=== PATIENT | male | born 1965 | race Two or more races ===

== ENCOUNTER 2018-10-16 09:13 | Emergency (ER) | payer OTHER ==
[2018-10-16 09:24] VITALS: BP 139/81; PULSE 71; TEMP 98.3; BMI 26.5
--- NOTE | 2018-10-16 09:35 | PDOC ---
History of Present Illness - General Chief Complaint: Pain, Acute Stated Complaint: LT FOOT PINKING INJURY Time Seen by Provider: 10/16/18 09:34 History Source: Patient Exam Limitations: No Limitations Past History - Travel Traveled outside of the country in the last 30 days: No Close contact w/someone who was outside of country & ill: No - Past Medical History Allergies/Adverse Reactions: Allergies Allergy/AdvReac Type Severity Reaction Status Date / Time No Known Allergies Allergy Verified 10/16/18 09:24 Home Medications: Ambulatory Orders Cephalexin Monohydrate [Keflex -] 500 mg PO BID #14 capsule 10/16/18 Sulfamethoxazole/Trimethoprim [Bactrim Ds -] 1 tab PO BID #14 tablet 10/16/18 - Suicide/Smoking/Psychosocial Hx Smoking History: Current every day smoker Have you smoked in the past 12 months: Yes Number of Cigarettes Smoked Daily: 5 Information on smoking cessation initiated: No Hx Alcohol Use: No Drug/Substance Use Hx: No Review of Systems - Review of Systems Able to Perform ROS?: Yes Comments:: 10/16/18 09:34 CONSTITUTIONAL: Absent: fever, chills, diaphoresis, generalized weakness, malaise, loss of appetite MUSCULOSKELETAL: Present: L foot pain Absent: myalgia, joint swelling SKIN: Absent: rash, itching, pallor NEUROLOGIC: Absent: headache, focal weakness or paresthesias, dizziness, unsteady gait, seizure, mental status changes, bladder or bowel incontinence PSYCHIATRIC: Absent: anxiety, depression, suicidal or homicidal ideation, hallucinations. Is the patient limited Persian proficient: No *Physical Exam - Vital Signs Last Vital Signs Temp Pulse Resp BP Pulse Ox 98.3 F 71 18 139/81 98 10/16/18 09:21 10/16/18 09:21 10/16/18 09:21 10/16/18 09:21 10/16/18 09:21 - Physical Exam Comments: 10/16/18 09:35 GENERAL: Well developed, well nourished. Awake and alert. No acute distress. NECK: Supple. Full ROM. No JVD. Carotid pulses 2+ and symmetric, without bruits. No thyromegaly. No lymphadenopathy. MUSCULOSKELETAL Normal range of motion at all joints. No bony deformities or tenderness. No CVA tenderness. EXTREMITIES: No cyanosis. No clubbing. No edema. No calf tenderness. SKIN: Warm and dry. Normal capillary refill. No rashes. No jaundice. NEUROLOGICAL: Alert, awake, appropriate. Cranial nerves 2-12 intact. No deficits to light touch and temperature in face, upper extremities and lower extremities. No motor deficits in the in face, upper extremities and lower extremities. Normoreflexic in the upper and lower extremities. Normal speech. Toes are down- going bilaterally. Gait is normal without ataxia. PSYCHIATRIC: Cooperative. Good eye contact. Appropriate mood and affect. *DC/Admit/Observation/Transfer Diagnosis at time of Disposition: Abscess - Discharge Dispostion Disposition: HOME Condition at time of disposition: Stable Decision to Admit order: No - Referrals Referrals: Joel Ponce MD [Staff Physician] - Rosa Bolivar DPM [Staff Physician] - - Patient Instructions Printed Discharge Instructions: DI for Skin Abscess Additional Instructions: You have an abscess on your L foot This is a skin infection. Please take the Bactrim and Keflex twice a day for one week. Please take all the antibiotics even if you feel better. You may use warm water soaks to the area. Please do this approximately 4-5 times a day. Please avoid shaving the skin around the area of redness. You may take Tylenol or Motrin as needed for pain. Follow the manufacture's instructions Please follow up with podiatry as soon as possible Return to the emergency department if you have worsening redness, fevers, increasing pain, or have any changes in your symptoms. - Post Discharge Activity Forms/Work/School Notes: Back to Work
== END 2018-10-16 11:22 | disposition home or self-care (01) ==
LOC: JERFT 09:13
DX: L02.612 Cutaneous abscess of left foot (principal); F17.210 Nicotine dependence, cigarettes, uncomplicated
CPT/HCPCS: 73630-TC-LT; 87070; 87205; 99281-25